=== PATIENT | female | born 1990 | race American Indian/Alaskan Native ===

== ENCOUNTER 2019-12-05 17:35 | Emergency (ER) | payer OTHER ==
[~2019-12-05] VITALS: Ht 175.3 cm; Wt 64.9 kg
[2019-12-05] MEDS ORDERED: ONDANSETRON HCL/PF 4 MG/2 ML VIAL IVP ONE (18:00)
[2019-12-05] MEDS ORDERED: IV NS 0.9% 1,000 ML BAG IV ONE (18:00)
[2019-12-05] MEDS ORDERED: KETOROLAC TROMETHAMINE INJ 30 MG/ML VIAL IV ONE (18:00)
[2019-12-05 18:08] LABS: APPEARANCE,URINE Clear (CLEAR); BILIRUBIN,URINE Negative (NEGATIVE); BLOOD, URINE Trace-intact Ery/uL (NEGATIVE); COLOR,URINE Yellow (YELLOW); KETONES,URINE Negative (NEGATIVE); LEUKOCYTE ESTERASE ,URINE Negative (NEGATIVE); NITRITE, URINE Negative (NEGATIVE); PROTEIN,URINE Negative (NEGATIVE); UGLUCOSE Negative (NEGATIVE); UROBILINOGEN,URINE 0.2 EU/dL (0.2)
[2019-12-05] MEDS ORDERED: ONDANSETRON HCL/PF 4 MG/2 ML VIAL ONE (18:14)
[2019-12-05] MEDS ORDERED: KETOROLAC TROMETHAMINE INJ 30 MG/ML VIAL ONE (18:14)
--- NOTE | 2019-12-05 18:16 | NUR ---
u/s tech at bedside for pelvic ultrasound
--- NOTE | 2019-12-05 18:22 | NUR ---
BIBS FROM HOME TO ER BED 16. AAOX4. NOT IN RESP DISTRESS. AMBULATORY. CAME IN FOR VAGINAL BLEEDING X 2 MONTHS. PT REPORTS THAT BLEEDING IS DARK RED W/ CLOTS, MODERATE AMOUNT IN QUANTITIES PER PT, CHANGES TAMPONS 4 TIMES PER DAY. PT REPORTS THAT SHE IS ON CONTROLS AND WAS CHANGED 2 MONTHS AGO WHEN BLEEDING STARTED. PT ALSO IS COMPLAINING OF ABDOMINAL CRAMPING AND NAUSEA. MD WAS AT THE BEDSIDE FOR EVAL. ORDERS RECEIVED NOTED AND CARRIED OUT. IV LINE ESTABLISHED ON L AC 20G, BLOOD DRAWN AND SENT TO LAB. US AT BEDSIDE WELL
[2019-12-05 18:24] LABS: BACTERIA,URINE None seen /HPF (None Seen); SQUAMOUS EPITHELIAL CELL,UR Few /HPF (None Seen); WBC,URINE 0-2 /HPF (0-3)
[2019-12-05 18:25] LABS: BASOPHILS # (AUTO) 0.1 /CMM (0.0-0.2); BASOPHILS % (AUTO) 1.2 % (0.0-2.0); EOSINOPHILS % (AUTO) 0.5 % (0.0-6.0); HEMATOCRIT 40 % (33-45); HEMOGLOBIN 12.9 g/dL (11.5-14.8); LYMPHOCYTES # (AUTO) 1.9 /CMM (0.8-4.8); LYMPHOCYTES % (AUTO) 41.1 % (20.0-44.0); MEAN CORPUSCULAR HGB CONC 32 g/dl (31.0-36.0); MEAN CORPUSCULAR VOLUME 87 fL (82-100); MONOCYTES # (AUTO) 0.5 /CMM (0.1-1.30); MONOCYTES % (AUTO) 10.2 % (2.0-12.0); NEUTROPHILS # (AUTO) 2.2 /CMM (1.8-8.9); PLATELET COUNT (AUTO) 203 /CMM (150-450); WHITE BLOOD COUNT (AUTO) 4.6 K/uL (4.3-11.0)
[2019-12-05 18:34] LABS: CALCIUM, SERUM 8.5 mg/dL (8.5-10.1); POTASSIUM 3.8 mmol/L (3.5-5.1)
[2019-12-05 18:46] LABS: ALBUMIN 3.7 g/dL (3.4-5.0); BILIRUBIN,DIRECT 0.1 mg/dL (0.0-0.2); BILIRUBIN,TOTAL 0.5 mg/dL (0.2-1.0); TOTAL PROTEIN, SERUM 7.9 g/dL (6.4-8.2)
[2019-12-05 19:20] VITALS: BP 114/70
== END 2019-12-05 19:20 | disposition home or self-care (01) ==
LOC: ER 17:41
DX: N93.8 Other specified abnormal uterine and vaginal bleeding (principal); D25.9 Leiomyoma of uterus, unspecified; R10.2 Pelvic and perineal pain; R42 Dizziness and giddiness
CPT/HCPCS: 36415; 76856; 80048; 80076; 81001; 84702; 85025; 96361; 96374; 96375; 99284; J1885; J2405; J7030; 81000-TC